=== PATIENT | female | born 1945 | race Caucasian/White ===

== ENCOUNTER 2018-01-06 07:43 | Day surgery (SDC) | payer OTHER ==
[~2018-01-06 07:43] MED LIST: ENALAPRIL MALEA20 MG PO; LASIX20 MG PO; ULTRAM50 MG PO; ZOCOR20 MG PO; [UNRECOGNIZED DRUG - OTHER] PO; [UNRECOGNIZED DRUG - OTHER] PO
== END 2018-01-06 17:50 | disposition home or self-care (01) ==
LOC: CIR.AMB 07:43
DX: N20.0 Calculus of kidney (principal); N20.1 Calculus of ureter

== ENCOUNTER 2018-01-23 06:28 | Inpatient (IN) | payer OTHER ==
[2018-01-24] MEDS ORDERED: MAXIMUM D310000 UNIT PO ×2 (10:29→10:34)
[2018-01-24] MEDS ORDERED: ALENDRONATE SOD70 MG PO (10:31)
== END 2018-01-25 10:32 | disposition home or self-care (01) | DRG 670 ==
LOC: CIR.AMB 06:28 → SURH 16:49 → O/R 16:49 → SURH 16:55
PROVIDERS: Urology
PROC: 0T768DZ Dilation of Right Ureter with Intraluminal Device, Via Natural or Artificial Opening Endoscopic (ICD-10-PCS; 2018-01-23)
PROC: 0TC38ZZ Extirpation of Matter from Right Kidney Pelvis, Via Natural or Artificial Opening Endoscopic (ICD-10-PCS; principal; 2018-01-23 09:00)
PROC: BT14YZZ Fluoroscopy of Kidneys, Ureters and Bladder using Other Contrast (ICD-10-PCS; 2018-01-25)
DX: N20.2 Calculus of kidney with calculus of ureter (principal)

== ENCOUNTER → 2022-08-20 08:00 | Outpatient (CLI) | payer OTHER ==
[~2022-08-20] VITALS: Ht 144.8 cm; Wt 65.8 kg
[~2022-08-20 08:00] MED LIST changes: +ALENDRONATE SOD70 MG PO; +MAXIMUM D310000 UNIT PO
== END | disposition home or self-care (01) ==
LOC: ADM 07:00 → LAB 08:00 → CIR.AMB 08-27 07:00 → EDSTATUS 09-17 07:00 → CIR.AMB 09-17 07:00
PROVIDERS: ATTEND Urology
DX: Z01.811 Encounter for preprocedural respiratory examination (principal); Z01.812 Encounter for preprocedural laboratory examination; Z01.810 Encounter for preprocedural cardiovascular examination; N20.0 Calculus of kidney

== ENCOUNTER 2023-01-21 05:32 | Day surgery (SDC) | payer OTHER ==
[2023-01-18 10:15] LABS: HEMATOCRIT 36.8 % (36.0-45.00); HEMOGLOBIN 12.4 g/dL (12.0-15.00); MEAN CELL VOLUME 92.1 fL (80.00-100.00); MEAN CORPUSCULAR HGB CONC 33.6 g/dl (32.0-36.0); PLATELET COUNT 203 K/uL (150-450); RED CELL DISTRIBUTION WIDTH 14.2 % (11.5-14.5)
[2023-01-18 10:55] LABS: URINE APPEARANCE Clear; URINE BILIRRUBIN Negative (NEGATIVE); URINE BLOOD Small; URINE COLOR Yellow; URINE GLUCOSE Negative (NEGATIVE); URINE LEUKOCYTE Moderate; URINE NITRATE Negative; URINE UROBILINOGEN 0.2 E.U./dl
[2023-01-18 10:59] LABS: URINE EPITHELIAL CELLS 6.1 uL (0.0-38.8); URINE WBC 356.4 uL (0.0-23.2)
[2023-01-18 11:11] LABS: INR 1.03; PARTIAL THROMBOPLASTIN TIME 29.1 SECONDS (22.0-34.0); PROTHROMBIN TIME 10.8 SECONDS (9.0-11.5)
[2023-01-18 11:14] LABS: CALCIUM 10.4 mg/dL (8.5-10.1); CREATININE SERUM 0.87 mg/dL (0.55-1.02); GFR 63.47; POTASSIUM 3.98 mEq/L (3.5-5.1)
[2023-01-18 11:49] LABS: URINE PROTEIN 100 (NEGATIVE)
[~2023-01-21] VITALS: Ht 134.6 cm; Wt 64.9 kg
[~2023-01-21 05:32] MED LIST changes: +[UNRECOGNIZED DRUG - OTHER] PO
== END 2023-01-21 15:50 | disposition home or self-care (01) ==
LOC: CIR.AMB 05:32
PROVIDERS: ATTEND Urology
DX: N20.0 Calculus of kidney (principal); N39.0 Urinary tract infection, site not specified; Z20.822 Contact with and (suspected) exposure to COVID-19